=== PATIENT | female | born 1970 | race Caucasian/White ===

== ENCOUNTER 2022-02-01 09:54 | Day surgery (SDC) | payer BC ==
[~2022-02-01] VITALS: Ht 162.6 cm; Wt 58.5 kg
[2022-02-01] VITALS (9 sets, daily range): BP systolic 112–127; BP diastolic 51–58; PULSE 55–86; TEMP 98.1–98.5
[2022-02-01] MEDS ORDERED: PERCOCET 325 MG1 TA2 PO (15:10)
[2022-02-01] MEDS ORDERED: MOTRIN 800800 MG/TAB PO (15:10)
--- NOTE | 2022-02-01 15:49 | NUR ---
PT ARRIVES TO ROOM @ 1515 FROM PACU. IVF INFUSING INTO PT'S LEFT HAND. VERAS CATHETER IN PLACE. PT IS A&O X4, STATES THAT SHE IS HAVING VERY MILD DISCOMFORT, DENIES NEEDS, IS GIVEN ICE WATER TO DRINK. PT'S @ BEDSIDE. SCDS IN PLACE TO BILATERAL LEGS. 4 LAP SITES TO THE ABDOMEN, EDGES WELL APPROXIMATED. RESPIRATIONS UNLABORED ON 2L O2 NC, OXYGEN SATS 98-100%.
[2022-02-01] MEDS ORDERED: ESTRACE 1MG1 MG/TAB PO (16:10)
--- NOTE | 2022-02-01 16:28 | NUR ---
PT STATES THAT SHE DID BEGIN FEELING A LITTLE NAUSEOUS WHILE TAKING BITE OF JELLO, WILL WAIT TO ORDER DINNER. RESPIRATIONS UNLABORED. CALL LIGHT WITHIN REACH.
--- NOTE | 2022-02-01 18:36 | NUR ---
PT IS DOING WELL, ASSISTED TO AMBULATE IN HALLS WITH 1 ASSIST, GAIT IS SLOW BUT STEADY. IVF INFUSING. STAT LOCK ON VERAS CATHETER HAD APPEARED TO HAVE BEEN PULLING WHEN PT SAT DOWN, STAT LOCK IS REPLACED ET MOVED FURTHER DOWN PT'S LEG. PT STATES THAT SHE FEELS RELIEF WHEN REPLACED.
[2022-02-02 00:42] VITALS: BP 113/41; PULSE 73; TEMP 98.7
--- NOTE | 2022-02-02 00:55 | NUR ---
PATIENT ALERT AND ORIENTED. C/O MILD ABD PAIN AND STATED THAT THE SCHEDULED MOTRIN HANDLE IT. HS MEDS PER EMAR. X4 LAPS CDI AND OPEN TO AIR, EDGES WELL APPROXIMATED. VERAS TO DD WITH CLEAR YELLOW URINE DRAINAGE. REQUESTED A SANDWICH BOX THAT WAS TOLERATED WITHOUT ISSUE. HAS BEEN INDEPENDENT IN ROOM.
[2022-02-02 04:56] VITALS: BP 106/44; PULSE 62; TEMP 98
[2022-02-02 08:00] VITALS: BP 107/47; PULSE 56; TEMP 98.9
--- NOTE | 2022-02-02 08:49 | NUR ---
PT RESTING IN BED, A&O X4, DENIES NEEDS. PT STATES THAT SHE WOULD LIKE TO SPEAK TO DR. JONES BEFORE SHE TAKES THE ESTRADIOL PILLS, SHE DID NOT THINK THAT SHE WOULD NEED TO TAKE THEM RIGHT AFTER SURGERY. IVF INFUSING INTO LEFT HAND. VERAS CATHETER DRAINING DEPENDENTLY, URINE IS YELLOW ET CLEAR. RESPIRATIONS UNLABORED ON RA. CALL LIGHT WITHIN REACH.
--- NOTE | 2022-02-02 09:30 | NUR ---
Several visit attempts; Management Consultant left card offering God's blessings and information regarding the availability of spiritual care at our hospital.
--- NOTE | 2022-02-02 10:04 | NUR ---
VERAS CATHETER ET IVF DISCONTINUED, PT INSTRUCTED TO NOTIFY STAFF WHEN SHE HAS URINATED. PT WILL DISCHARGE TO HOME TODAY.
--- NOTE | 2022-02-02 10:38 | NUR ---
PT HAS DRESSED SELF IN CLOTHES FROM HOME, HAS URINATED WITH NO PROBLEMS. PERIPHERAL IV DCED, CATHETER TIP INTACT. PT GIVEN DISCHARGE INSTRUCTIONS ET EDUCATION, DEMONSTRATES UNDERSTANDING ET DENIES QUESTIONS @ THIS TIME. PT'S IS ON HIS WAY TO [employer] COOK PT UP @ THIS TIME, WILL DISCHARGE TO HOME.
--- NOTE | 2022-02-02 10:53 | NUR ---
PT ABULATES WITH THIS NURSE ET HER OUT TO THEIR VEHICLE, DISCHARGING HOME.
== END 2022-02-02 10:50 | disposition home or self-care (01) ==
LOC: SDCO 09:54 → SURG 15:15 → SDCO 02-02 10:50
DX: D27.0 Benign neoplasm of right ovary (principal); N83.12 Corpus luteum cyst of left ovary; D27.1 Benign neoplasm of left ovary; N94.6 Dysmenorrhea, unspecified; Z87.891 Personal history of nicotine dependence
CPT/HCPCS: OP; J0690; J1100; J1170; J1885; J2405; J2704; J2710; J3010; J7120